=== PATIENT | female | born 1975 | race Hispanic/Latino ===

== ENCOUNTER 2020-10-22 05:18 | Observation (INO) | payer OTHER ==
[2020-09-19 12:30] LABS: BASOPHILS # (AUTO) 0.1 (0.0-0.1); BASOPHILS % 0.6 % (0.0-1.0); EOSINOPHILS # (AUTO) 0.1 (0.0-0.4); EOSINOPHILS % 0.9 % (0.0-6.0); HEMATOCRIT 34.1 % (34.2-44.1); HEMOGLOBIN 10.4 g/dL (12.0-16.0); LYMPHOCYTES # (AUTO) 3.1 (1.0-3.2); LYMPHOCYTES % 35.3 % (18.0-39.1); MEAN CORPUSCULAR HEMOGLOBIN 24.8 pg (28-32); MEAN CORPUSCULAR HGB CONC 30.5 g/dL (31-35); MEAN CORPUSCULAR VOLUME 81.2 fL (81-99); MONOCYTES # (AUTO) 0.4 (0.2-0.8); MONOCYTES % 4.8 % (4.4-11.3); NEUTROPHILS # (AUTO) 5.1 (2.1-6.9); NEUTROPHILS % 58.2 % (38.7-80.0); PLATELET COUNT 264 x10e3/uL (140-360); RED CELL DISTRIBUTION WIDTH 15.9 % (11.7-14.4)
[2020-09-19 12:41] LABS: CLARITY,URINE CLEAR (CLEAR); COLOR,URINE YELLOW (YELLOW); LEUKOCYTE ESTERASE ,URINE NEGATIVE (NEGATIVE)
[2020-09-19 12:42] LABS: KETONES,URINE NEGATIVE (NEGATIVE); NITRITE,URINE NEGATIVE (NEGATIVE); PROTEIN,URINE DIPSTICK NEGATIVE (NEGATIVE); URINE UROBILINOGEN 0.2 mg/dL (0.2 - 1)
[2020-09-19 13:09] LABS: HIV 1&2 AB SCREEN NON-REACTIVE (NONREACTIVE)
[2020-10-20 08:19] LABS: BASOPHILS # (AUTO) 0.1 (0.0-0.1); BASOPHILS % 0.7 % (0.0-1.0); EOSINOPHILS # (AUTO) 0.2 (0.0-0.4); EOSINOPHILS % 2.1 % (0.0-6.0); HEMATOCRIT 38.5 % (34.2-44.1); HEMOGLOBIN 12.3 g/dL (12.0-16.0); LYMPHOCYTES # (AUTO) 3.3 (1.0-3.2); LYMPHOCYTES % 35.6 % (18.0-39.1); MEAN CORPUSCULAR HEMOGLOBIN 26.8 pg (28-32); MEAN CORPUSCULAR HGB CONC 31.9 g/dL (31-35); MEAN CORPUSCULAR VOLUME 83.9 fL (81-99); MONOCYTES # (AUTO) 0.5 (0.2-0.8); MONOCYTES % 5.5 % (4.4-11.3); NEUTROPHILS # (AUTO) 5.2 (2.1-6.9); NEUTROPHILS % 55.9 % (38.7-80.0); PLATELET COUNT 264 x10e3/uL (140-360); RED BLOOD COUNT 4.59 x10e6/uL (3.6-5.1); RED CELL DISTRIBUTION WIDTH 17.2 % (11.7-14.4)
[~2020-10-22] VITALS: Ht 157.5 cm; Wt 95.7 kg
[~2020-10-22 05:18] MED LIST: DOXYCYCLINE HY100 MG PO; IRON PO; KETOROLAC PO
[2020-10-22] MEDS ORDERED: VALACYCLOVIR500 MG PO (05:47)
[2020-10-22] MEDS ORDERED: CEFOXITIN 1GM/0.9% NS 50ML 100 ML IV ONE (05:49)
[2020-10-22] MEDS ORDERED: BUPIVACAINE LIPOSOME/PF 266 MG/20 ML IJ ONE (07:15)
[2020-10-22] MEDS ORDERED: ACETAMINOPHEN 1000 MG/100 ML 100 ML IV ONE (08:59)
[2020-10-22] MEDS ORDERED: HYDROMORPHONE 2MG/ML 2 MG/ML ML ONE (09:19)
[2020-10-22] MEDS ORDERED: DOCUSATE SODIUM 100 MG CAP PO PRN (11:30)
[2020-10-22] MEDS ORDERED: SIMETHICONE 80 MG CHEW PO PRN (11:30)
[2020-10-22] MEDS ORDERED: DIPHENHYDRAMINE HCL INJ 50 MG/ML VIAL IM PRN (11:30)
[2020-10-22] MEDS ORDERED: NALOXONE HCL INJ 0.4 MG/ML AMP IV PRN (11:30)
[2020-10-22] MEDS ORDERED: DIPHENHYDRAMINE HCL 25 MG CAP PO PRN ×2 (11:30)
[2020-10-22] MEDS ORDERED: METOCLOPRAMIDE HCL 10 MG/2ML VIAL ONE (11:34)
[2020-10-22] MEDS ORDERED: ONDANSETRON HCL INJ 2MG/ML 2ML 2 MG/ML VIAL ONE ×2 (11:34→12:59)
[2020-10-22] MEDS: HYDROMORPHONE 0.2MG/ML-SOD CHL 30ML PCA SYRINGE IV PRN (11:40)
[2020-10-22] MEDS ORDERED: FENTANYL CITRATE/PF 100MCG/2 ML INJ ONE (11:40)
[2020-10-22] MEDS ORDERED: KETOROLAC TROMETHAMINE 30 MG/ML VIAL ONE (12:59)
[2020-10-22] MEDS ORDERED: FAMOTIDINE 20 MG/2 ML VIAL IV ONE (12:59)
[2020-10-22] MEDS ORDERED: DEXAMETHASONE SOD PHOS INJ 4 MG/ML VIAL ONE (12:59)
[2020-10-22] MEDS ORDERED: PROPOFOL IV EMULSION 10 MG/ML 20 ML VIAL ONE (12:59)
[2020-10-22] MEDS ORDERED: SEVOFLURANE INHAL SOLN 250 ML PEN BTL ONE (12:59)
[2020-10-22] MEDS ORDERED: NEOSTIGMINE 1 MG/ML 10ML VIAL ONE (12:59)
[2020-10-22] MEDS ORDERED: ROCURONIUM BROMIDE 10 MG/ML 5ML VIAL IV ONE (12:59)
[2020-10-22] MEDS ORDERED: GLYCOPYRROLATE INJ 0.2 MG/ML VIAL ONE (12:59)
[2020-10-22] MEDS ORDERED: LIDOCAINE HCL 2% LOCAL INJ 5 ML SDV VIAL INJ ONE (12:59)
[2020-10-22 14:20] VITALS: BP 143/86
[2020-10-22 14:29] VITALS: BP 143/86
[2020-10-22] MEDS: DEXTROSE 5%/LACTATED RINGERS 1,000 ML IV SCH (15:00)
[2020-10-22] MEDS: ONDANSETRON HCL INJ 2MG/ML 2ML 2 MG/ML VIAL IV PRN ×2 (15:34→20:27)
[2020-10-22] MEDS: SODIUM CHLORIDE 0.9% IV SCH ×2 (15:47→20:27)
[2020-10-22] MEDS: CEFOXITIN SODIUM IV SCH ×2 (15:47→20:27)
[2020-10-22 16:30] VITALS: BP 133/67
[2020-10-22 20:00] VITALS: BP 130/80
[2020-10-22 20:45] VITALS: BP 130/80
[2020-10-23] VITALS: BP 134/60
[2020-10-23] MEDS: DEXTROSE 5%/LACTATED RINGERS 1,000 ML IV SCH ×2 (01:15→07:00)
[2020-10-23] MEDS: CEFOXITIN SODIUM IV SCH ×2 (03:39→08:05)
[2020-10-23] MEDS: SODIUM CHLORIDE 0.9% IV SCH ×2 (03:39→08:05)
[2020-10-23] MEDS: HYDROMORPHONE 0.2MG/ML-SOD CHL 30ML PCA SYRINGE IV PRN (03:40)
[2020-10-23 04:00] VITALS: BP 124/77
[2020-10-23 05:53] LABS: BASOPHILS % 0.3 % (0.0-1.0); HEMATOCRIT 34.3 % (34.2-44.1); HEMOGLOBIN 10.9 g/dL (12.0-16.0); LYMPHOCYTES # (AUTO) 2.3 (1.0-3.2); LYMPHOCYTES % 19.7 % (18.0-39.1); MEAN CORPUSCULAR HEMOGLOBIN 27.3 pg (28-32); MEAN CORPUSCULAR HGB CONC 31.8 g/dL (31-35); MEAN CORPUSCULAR VOLUME 85.8 fL (81-99); MONOCYTES # (AUTO) 0.7 (0.2-0.8); MONOCYTES % 6.1 % (4.4-11.3); NEUTROPHILS # (AUTO) 8.6 (2.1-6.9); NEUTROPHILS % 73.2 % (38.7-80.0); PLATELET COUNT 258 x10e3/uL (140-360); RED CELL DISTRIBUTION WIDTH 17.6 % (11.7-14.4)
[2020-10-23 06:22] LABS: ANION GAP 11.8 mmol/L (8-16); BLOOD UREA NITROGEN 6 mg/dL (7-26); BUN/CREATININE RATIO 8 (6-25); CALCIUM 8.4 mg/dL (8.4-10.2); CARBON DIOXIDE 23 mmol/L (22-29); CHLORIDE 105 mmol/L (98-107); CREATININE, SERUM 0.79 mg/dL (0.57-1.11); EST GLOMERULAR FILTRATION RATE > 60 ML/MIN (60-); GLUCOSE 103 mg/dL (74-118); POTASSIUM 3.8 mmol/L (3.5-5.1); SODIUM 136 mmol/L (136-145)
[2020-10-23 08:01] VITALS: BP 118/81
[2020-10-23] MEDS: KETOROLAC TROMETHAMINE 30 MG/ML VIAL IV PRN ×2 (09:09→16:15)
[2020-10-23] MEDS ORDERED: IBUPROFEN 400 MG TAB PO PRN (09:15)
[2020-10-23] MEDS ORDERED: HYDROCODONE/APAP 5MG-325MG TAB PO PRN (09:15)
[2020-10-23 11:59] VITALS: BP 137/78
[2020-10-23] MEDS ORDERED: TYLENOL # 31 EA PO (15:26)
[2020-10-23] MEDS ORDERED: MOTRIN200 MG PO (15:26)
[2020-10-23] MEDS ORDERED: COLACE100 MG PO (15:27)
[2020-10-23] MEDS ORDERED: [UNRECOGNIZED DRUG - OTHER] PO (15:28)
[2020-10-23 16:13] VITALS: BP 141/73
== END 2020-10-23 16:38 | disposition home or self-care (01) ==
LOC: OR 05:18 → PACU V 11:28 → MED/SURG 14:00
PROVIDERS: ADMIT Specialist; ATTEND Specialist
DX: D25.2 Subserosal leiomyoma of uterus (principal); R10.31 Right lower quadrant pain; D64.9 Anemia, unspecified; K66.0 Peritoneal adhesions (postprocedural) (postinfection); Q50.5 Embryonic cyst of broad ligament; Z01.810 Encounter for preprocedural cardiovascular examination; Z01.812 Encounter for preprocedural laboratory examination; Z01.818 Encounter for other preprocedural examination; Z20.822 Contact with and (suspected) exposure to COVID-19
CPT/HCPCS: 36415 ×3; 49999; 58150; 71046; 80048; 81003; 84702 ×2; 85025 ×3; 86850; 86900; 87390; 88307; 93005; C9290; G0378 ×2; G0433; G0435; J0131; J0694; J1100; J1170; J1885 ×2; J2001; J2405; J2704; J2710; J2765; J3010; J7050; J7121 ×2; U0002 ×2